=== PATIENT | female | born 1990 | race Caucasian/White ===

== ENCOUNTER 2017-02-14 20:28 | Emergency (ER) | payer MEDICAID ==
[~2017-02-14] VITALS: Ht 162.6 cm; Wt 72.0 kg
[2017-02-14 20:37] VITALS: BP 118/70
== END 2017-02-14 21:51 | disposition home or self-care (01) ==
LOC: ED 20:38
DX: H60.591 Other noninfective acute otitis externa, right ear (principal)
CPT/HCPCS: 99283

== ENCOUNTER 2017-10-01 01:21 | Emergency (ER) | payer MEDICAID ==
[~2017-10-01] VITALS: Ht 165.1 cm; Wt 73.0 kg
[2017-10-01 01:28] VITALS: BP 126/80
[2017-10-01] MEDS ORDERED: DEXAMETHASONE 4 MG TABLET PO STA (01:52)
[2017-10-01] MEDS ORDERED: DEXAMETHASONE 4 MG TABLET ONE (02:00)
== END 2017-10-01 02:14 | disposition home or self-care (01) ==
LOC: ED 02:05
DX: J02.8 Acute pharyngitis due to other specified organisms (principal)
CPT/HCPCS: 99282

== ENCOUNTER 2018-03-12 12:04 | Emergency (ER) | payer MEDICAID ==
[~2018-03-12] VITALS: Ht 162.6 cm; Wt 71.8 kg
[2018-03-12] MEDS ORDERED: PHENAZOPYRIDINE 200 MG TABLET PO ONE (13:00)
[2018-03-12] MEDS ORDERED: ONDANSETRON ODT 4 MG PO ONE (13:00)
[2018-03-12] MEDS ORDERED: PHENAZOPYRIDINE 200 MG TABLET ONE (13:01)
[2018-03-12] MEDS ORDERED: ONDANSETRON ODT 4 MG ONE (13:02)
[2018-03-12 13:13] LABS: CULTURE INDICATED? YES; MICROSCOPIC INDICATED
[2018-03-12 14:01] VITALS: BP 123/63
[2018-03-12 14:34] LABS: HCG UR SG 1.029 (1.003-1.030)
== END 2018-03-12 14:09 | disposition home or self-care (01) ==
LOC: ED 13:45
DX: N30.90 Cystitis, unspecified without hematuria (principal)
CPT/HCPCS: 81001; 81025; 87086; 99284; Q0162

== ENCOUNTER 2018-09-01 19:24 | Emergency (ER) | payer MEDICAID ==
[~2018-09-01] VITALS: Ht 162.6 cm; Wt 72.8 kg
[2018-09-01 20:00] LABS: BASOPHILS # (AUTO) 0.06 x10^3/uL (0-0.1); BASOPHILS % (AUTO) 1 % (0-1); EOSINOPHILS # (AUTO) 0.06 x10^3/uL (0-0.4); EOSINOPHILS % (AUTO) 1 % (1-7); LYMPHOCYTES # (AUTO) 4.43 x10^3/uL (1-3.4); LYMPHOCYTES % (AUTO) 37 % (22-44); MD NO; MEAN CORPUSCULAR HEMOGLOBIN 30.9 pg (27.0-34.8); MEAN CORPUSCULAR HGB CONC 34.4 g/dL (32.4-35.8); MEAN CORPUSCULAR VOLUME 89.8 fL (80-100); MEAN PLATELET VOLUME 8.3 fL (7.4-10.4); MONOCYTES # (AUTO) 0.71 x10^3/uL (0.2-0.8); MONOCYTES % (AUTO) 6 % (2-9); NEUTROPHILS # (AUTO) 6.58 x10^3/uL (1.8-6.8); NEUTROPHILS % (AUTO) 56 % (42-75); PLATELET COUNT 255 x10^3/uL (130-400); RED BLOOD COUNT 4.63 x10^6/uL (3.82-5.3); RED CELL DISTRIBUTION WIDTH 13.5 % (9.6-15.2)
[2018-09-01 20:08] LABS: ALANINE AMINOTRANSFERASE 31 U/L (12-78); ALBUMIN 4.2 g/dL (3.4-5.0); ANION GAP 6 mmol/L (5-15); CALCIUM 8.9 mg/dL (8.5-10.1); CHLORIDE 107 mmol/L (98-107); CREATININE 0.98 mg/dL (0.55-1.02)
[2018-09-01 20:10] LABS: ALKALINE PHOSPHATASE 63 U/L (45-117); BILIRUBIN,TOTAL 0.4 mg/dL (0.2-1.0); TOTAL PROTEIN 7.4 g/dL (6.4-8.2)
[2018-09-01 20:17] LABS: HCG UR SG 1.017 (1.003-1.030)
[2018-09-01 20:21] LABS: MICROSCOPIC INDICATED
[2018-09-01 20:22] LABS: CULTURE INDICATED? YES
[2018-09-01 22:00] VITALS: BP 112/62
== END 2018-09-01 22:26 | disposition home or self-care (01) ==
LOC: ED 19:53
DX: R10.32 Left lower quadrant pain (principal); Z87.440 Personal history of urinary (tract) infections
CPT/HCPCS: 36415; 74176; 80053; 81001; 81025; 83690; 85025; 87086; 99284